=== PATIENT | female | born 1935 | race Caucasian/White ===

== ENCOUNTER 2021-11-23 07:50 | Inpatient (IN) | payer MEDICARE, MEDICAID ==
[~2021-11-23] VITALS: Ht 177.8 cm; Wt 48.2 kg
[~2021-11-23 07:50] MED LIST: HEPARIN SODIUM 1,000 UNIT/1ML VIAL IV ONE; NICARDIPINE 100MCG/ML 10ML VIAL (CATH LAB) IV ONE; NITROGLYCERIN 50MCG/ML 10ML VIAL (CATH LAB) IV ONE
[2021-11-23] MEDS ORDERED: LEVO75TA7 PO (08:37)
[2021-11-23] MEDS ORDERED: METO-539 PO (08:37)
[2021-11-23] MEDS ORDERED: ATOR40TA70 PO (08:37)
[2021-11-23] MEDS ORDERED: DIGO125T80 PO (08:37)
[2021-11-23] MEDS ORDERED: ASPI-1497 PO (08:37)
[2021-11-23] MEDS ORDERED: LOSA100T32 PO (08:37)
[2021-11-23 09:11] LABS: HEMATOCRIT 38.4 % (36.0-48.0); HEMOGLOBIN 12.5 g/dL (12.0-16.0); MEAN CORPUSCULAR HEMOGLOBIN 30.8 pg (28.0-32.0); MEAN CORPUSCULAR VOLUME 94.5 fL (81.0-99.0); PLATELET 171 x1000/uL (130-400); RED BLOOD CELL COUNT 4.06 mill/uL (4.2-5.4); RED CELL DISTRIBUTION WIDTH 13.8 % (11.6-14.6)
[2021-11-23 09:15] LABS: PARTIAL THROMBOPLASTIN TIME 28.1 sec (23.4-31.0); PROTHROMBIN TIME 11.2 sec (9.6-11.0)
[2021-11-23] MEDS ORDERED: LIDOCAINE HCL 1% 20ML VIAL (Pyxis) INJ ONE (09:53)
[2021-11-23] MEDS ORDERED: IODIXANOL 320MG/ML 100 ML BOTTLE IV ONE (09:53)
[2021-11-23] MEDS ORDERED: MIDAZOLAM HCL 2 MG/2 ML VIAL ONE (09:54)
[2021-11-23] MEDS ORDERED: FENTANYL CITRATE/PF 50MCG/ML 2ML VIAL ONE (09:54)
[2021-11-23] MEDS ORDERED: ACETAMINOPHEN 325MG TABLET PO PRN (10:45)
[2021-11-23] MEDS ORDERED: MORPHINE SULFATE 2 MG/ML CPJ (NOT FOR IM USE) IV PRN (10:45)
[2021-11-23 15:52] VITALS: BP 146/72
[2021-11-23 16:00] VITALS: BP 120/66
[2021-11-23] MEDS ORDERED: DIGO125T80 MT (16:17)
[2021-11-23 18:00] VITALS: BP 162/80
[2021-11-23] MEDS: METOPROLOL TARTRATE 50MG TABLET PO SCH (18:13)
[2021-11-23] MEDS ORDERED: NALOXONE HCL 0.4MG/ML VIAL IV PRN (18:15)
[2021-11-23 20:08] VITALS: BP 127/76
[2021-11-23] MEDS: ATORVASTATIN CALCIUM 40MG TABLET PO SCH (21:15)
[2021-11-23 22:08] VITALS: BP 125/62
[2021-11-24] VITALS (13 sets, daily range): BP systolic 130–167; BP diastolic 53–89
[2021-11-24] MEDS: LEVOTHYROXINE SODIUM 75MCG TABLET PO SCH (07:30)
[2021-11-24] MEDS: DIGOXIN 125MCG TABLET PO SCH (07:32)
[2021-11-24] MEDS: METOPROLOL TARTRATE 50MG TABLET PO SCH ×2 (07:32→16:30)
[2021-11-24] MEDS ORDERED: GENTAMICIN SULF 40MG/ML 2ML VIAL ONE (09:26)
[2021-11-24] MEDS ORDERED: LIDOCAINE HCL 1% 20ML VIAL (Pyxis) INJ ONE (09:26)
[2021-11-24] MEDS ORDERED: IODIXANOL 320MG/ML 100 ML BOTTLE IV ONE (09:27)
[2021-11-24] MEDS ORDERED: GENTAMICIN/NS IRRIGATION 500 ML IR ONE (09:27)
[2021-11-24] MEDS ORDERED: CEFAZOLIN 1000MG PREMIX 100 ML IV ONE (09:29)
[2021-11-24] MEDS ORDERED: FENTANYL CITRATE/PF 50MCG/ML 2ML VIAL ONE (10:30)
[2021-11-24] MEDS ORDERED: FENTANYL CITRATE/PF 50MCG/ML 2ML VIAL IV PRN (14:45)
[2021-11-24] MEDS ORDERED: MORPHINE SULFATE 2 MG/ML CPJ (NOT FOR IM USE) IV PRN (14:45)
[2021-11-24] MEDS ORDERED: ONDANSETRON HCL 4MG/2ML INJ IV PRN (14:45)
[2021-11-24] MEDS: HYDROCODONE/ACETAMINOPHEN 5/325MG TABLET PO PRN (16:30)
[2021-11-24] MEDS: LOSARTAN POTASSIUM 100 MG TABLET PO SCH (17:48)
[2021-11-24] MEDS: ATORVASTATIN CALCIUM 40MG TABLET PO SCH (22:07)
[2021-11-24] MEDS: CEFAZOLIN 1000MG PREMIX 50 ML IV SCH (22:29)
[2021-11-25] VITALS (8 sets, daily range): BP systolic 127–155; BP diastolic 50–74
[2021-11-25] MEDS: HYDROCODONE/ACETAMINOPHEN 5/325MG TABLET PO PRN (00:17)
[2021-11-25 05:58] LABS: BASOPHILS % 0.2 % (0.0-2.0); HEMATOCRIT. 39.6 % (36.0-48.0); HEMOGLOBIN. 13.3 g/dL (12.0-16.0); MEAN CORPUSCULAR HEMOGLOBIN 31.5 pg (28.0-32.0); MEAN PLATELET VOLUME 9.8 fl (7.4-10.4); MONOCYTES % 10.3 % (2.0-8.0); NEUTROPHILS % 77.5 % (40.0-76.0); PLATELET 134 x1000/uL (130-400); RED BLOOD CELL COUNT 4.21 mill/uL (4.2-5.4); RED CELL DISTRIBUTION WIDTH 13.8 % (11.6-14.6)
[2021-11-25] MEDS: LOSARTAN POTASSIUM 100 MG TABLET PO SCH (07:04)
[2021-11-25] MEDS: LEVOTHYROXINE SODIUM 75MCG TABLET PO SCH (07:04)
[2021-11-25] MEDS: DIGOXIN 125MCG TABLET PO SCH (09:31)
[2021-11-25] MEDS: METOPROLOL TARTRATE 50MG TABLET PO SCH (09:34)
[2021-11-25] MEDS: CEFAZOLIN 1000MG PREMIX 50 ML IV SCH (09:34)
== END 2021-11-25 14:30 | disposition home or self-care (01) | DRG 286 ==
LOC: CCL 07:50 → 5EST 07:51
PROVIDERS: ADMIT Internal Medicine Cardiovascular Disease; ATTEND Internal Medicine Cardiovascular Disease
PROC: 4A023N7 Measurement of Cardiac Sampling and Pressure, Left Heart, Percutaneous Approach (ICD-10-PCS; principal; 2021-11-24)
PROC: B2111ZZ Fluoroscopy of Multiple Coronary Arteries using Low Osmolar Contrast (ICD-10-PCS; 2021-11-24)
PROC: B2151ZZ Fluoroscopy of Left Heart using Low Osmolar Contrast (ICD-10-PCS; 2021-11-24)
DX: I11.0 Hypertensive heart disease with heart failure (principal); I50.23 Acute on chronic systolic (congestive) heart failure; R64 Cachexia; Z68.1 Body mass index [BMI] 19.9 or less, adult; I42.0 Dilated cardiomyopathy; I73.9 Peripheral vascular disease, unspecified; I42.8 Other cardiomyopathies; E03.9 Hypothyroidism, unspecified; I44.7 Left bundle-branch block, unspecified; E78.5 Hyperlipidemia, unspecified; E78.00 Pure hypercholesterolemia, unspecified; I48.0 Paroxysmal atrial fibrillation; I49.5 Sick sinus syndrome
CPT/HCPCS: 33225; 33249; 36415; 71045; 75820; 80048; 85025; 85027; 87426; 93005; 93458; A4565; C1769; C1882; C1887; C1893; C1898; C1899; C1900; J0690; J1580; J1644; J2250; J3010; J3490; Q9967